=== PATIENT | male | born 2005 | race African-American/Black ===

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

== ENCOUNTER 2024-07-14 16:42 | Emergency (ER) | payer SELFPAY ==
[~2024-07-14] VITALS: Ht 177.8 cm; Wt 92.0 kg
[~2024-07-14 16:42] MED LIST changes: +TRAMADOL HCL50 MG PO; +VIBRAMYCIN100 M2 PO
[2024-07-14 16:52] VITALS: BP 140/89
[2024-07-14] MEDS ORDERED: IBUPROFEN 800 MG/TAB PO ONE (17:00)
[2024-07-14] MEDS ORDERED: SULFAMETHOXAZOLE W/TRIMETHOPRI 1 COMBO TAB PO ONE (17:00)
[2024-07-14] MEDS ORDERED: ACETAMINOPHEN 500 MG TAB PO ONE (17:00)
[2024-07-14] MEDS ORDERED: BACTRIM DS1 TAB PO (17:04)
[2024-07-14 17:19] VITALS: BP 150/90
[2024-07-14 17:20] VITALS: BP 150/90
== END 2024-07-14 17:20 | disposition home or self-care (01) | DRG 603 ==
LOC: ED 16:42
DX: L03.011 Cellulitis of right finger (principal)

== ENCOUNTER 2024-10-23 13:53 | Emergency (ER) | payer SELFPAY ==
[~2024-10-23] VITALS: Ht 177.8 cm; Wt 97.0 kg
[2024-10-23] VITALS (7 sets, daily range): BP systolic 125–135; BP diastolic 79–93
[~2024-10-23 13:53] MED LIST changes: +BACTRIM DS1 TAB PO
[2024-10-23] MEDS ORDERED: IBUPROFEN600 MG PO (14:50)
== END 2024-10-23 15:07 | disposition home or self-care (01) | DRG 563 ==
LOC: ED 13:53
DX: S82.831A Other fracture of upper and lower end of right fibula, initial encounter for closed fracture (principal); X50.0XXA Overexertion from strenuous movement or load, initial encounter; X50.9XXA Other and unspecified overexertion or strenuous movements or postures, initial encounter; Y93.61 Activity, american tackle football